=== PATIENT | female | born 1970 | race Caucasian/White ===

== ENCOUNTER 2022-03-09 14:30 | Inpatient (IN) | payer SELFPAY ==
[2022-03-09 15:16] LABS: Actual Bicarbonate (HCO3v) 22 mEq/L (22-28); Base Excess -2.5 mEq/L (-2.0 to +3.0); Calcium, Ionized (venous) 1.04 mmol/L (1.16-1.32); Chloride (VBG) 104 mmol/L (98-106); Hemoglobin (Hb) 16.2 g/dL (11.7-16.0); Sodium 142.8 mmol/L (133-146)
[2022-03-09 15:24] LABS: #Lymphocytes 0.8 thou/uL (1.20-3.40); #Monocytes 1.4 thou/uL (0.11-0.59); #Neutrophils 16.4 thou/uL (1.40-6.50); %Basophils 0.1 % (0.0-1.0); %Eosinophils 0.1 % (0.0-10.0); %Lymphocytes 4.1 % (21.0-51.0); %Monocytes 7.6 % (0.0-10.0); %Neutrophils 88.2 % (42.0-75.0); Hemoglobin 15.6 g/dL (12.0-16.0); Mean Corpuscular HGB CONC 32.7 g/dL (32.0-36.0); Mean Corpuscular Hemoglobin 34.3 pg (27.0-31.0); Platelet Count 418 thou/uL (130-400); RBC Distribution Width 11.7 % (11.5-14.5); Red Blood Cell (RBC) Count 4.55 mill/uL (4.20-5.40); White Blood Cell (WBC) Count 18.6 thou/uL (4.8-10.8)
[2022-03-09 15:46] LABS: ALT (SGPT) 167 U/L (8-55); AST (SGOT) 317 U/L (5-34); Acetaminophen Less than 10.0 mcg/mL (10.0-30.0); Albumin 4.7 g/dL (3.5-5.0); Alcohol Less than 10 mg/dL (Less than 10); Alkaline Phosphatase 127 U/L (40-110); Anion Gap 21 mmol/L (10-20); BUN (Urea Nitrogen) 41 mg/dL (7.0-18.7); Bilirubin, Total 0.5 mg/dL (0.2-1.2); Calc. Creatinine Clearance 0 mL/min (70-130); Calcium 9.5 mg/dL (7.8-10.44); Carbon Dioxide 22 mmol/L (22-29); Chloride 103 mmol/L (98-107); Estimated GFR 56; Globulin 3.5 g/dL (2.4-3.5); Glucose 83 mg/dL (70-105); Protein, Total 8.2 g/dL (6.0-8.3); Salicylate Less than 8.0 mg/dL (15.0-30.0); Sodium 142 mmol/L (136-145)
[2022-03-09 15:52] LABS: Magnesium 2.3 mg/dL (1.6-2.6)
[2022-03-09] MEDS ORDERED: levETIRAcetam 2,000 MG in Sodium Chloride 0.9% 100 ML SLOW IVP SCH (16:45)
[2022-03-09 16:48] LABS: CK (CPK) 26557 U/L (29-168)
[2022-03-09] MEDS ORDERED: Rocuronium Bromide 10 MG/ML (10ML VIAL) ONE (16:50)
[2022-03-09] MEDS ORDERED: Mannitol 12.5 GM/50 ML ONE ×3 (16:57→18:01)
[2022-03-09 17:28] LABS: Analyzer IN Cardio ER; Base Excess (BEa) -3.9 mEq/L (-2.0 to +3.0); Calcium, Ionized (arterial) 1.08 mmol/L (1.12-1.30); Carboxyhemoglobin (COHb) 0.2 gm% (0.0-3.0); Hemoglobin (Hb) 15.6 g/dL (12.0-16.0); O2 Tension (PaO2), arterial 454.5 mmHg (80.0-100.0); Potassium - ABG Lab 3.88 mmol/L (3.70-5.30); pH, Arterial 7.46 (7.35-7.45)
[2022-03-09 17:30] LABS: Puncture Site LBA
[2022-03-09] MEDS ORDERED: Propofol 1,000 MG/100 ML VIAL IV ONE (18:00)
[2022-03-09 18:25] LABS: Amphetamine Detected (NotDetected); Barbiturates Screen Not Detected (NotDetected); Benzodiazepine Screen Detected (NotDetected); Cocaine Metabolite Screen Not Detected (NotDetected); Methadone Not Detected (NotDetected); Methamphetamine Detected (NotDetected); Opiate Screen Detected (NotDetected); Oxycodone Screen Not Detected (NotDetected); Phencyclidine (PCP) Not Detected (NotDetected); THC/Cannabinoid Screen Detected (NotDetected); Tricyclic Screen Not Detected (NotDetected)
[2022-03-09 18:26] LABS: Bacteria/HPF 4+ HPF (None Seen); Bilirubin Negative (Negative); Blood, Urine 3+ (Negative); Clarity Turbid (Clear); Glucose, Urine (Dipstick) Normal (Negative); Ketone, Urine 20 mg/dL (Negative); Leukocyte 250 Leu/uL (Negative); Nitrite 1+ (Negative); Protein, Urine (Dipstick) 70 mg/dL (Neg-Trace); RBC/HPF 0-3 HPF (0-3); Specific Gravity, Urine 1.017 (1.002-1.036); Squamous Epithelial 0-3 HPF (0-3); Urobilinogen Normal mg/dL (Less than 2); WBC/HPF 21-50 HPF (0-3)
[2022-03-09 18:34] LABS: Pregnancy Test - Urine (BHCG) Negative (Negative); Pregu Control Background? CLEAR/WHITE (CLR/WHITE); Pregu Control Bar Appear? YES (CONTROL BAR); Specific Gravity 1.017 (1.002-1.036)
[2022-03-09] MEDS ORDERED: Ondansetron PF 4 MG/2 ML Vial IVP PRN (18:43)
[2022-03-09] MEDS ORDERED: Ondansetron ODT 4 MG TAB PO PRN (18:43)
[2022-03-09] MEDS ORDERED: Acetaminophen 650 MG Suppository PR PRN (18:43)
[2022-03-09] MEDS: Sodium Chloride 0.9% 1,000 ML IV SCH (19:25)
[2022-03-09] MEDS ORDERED: Midazolam HCl 2 mg/2 ml Vial SLOW IVP PRN (19:49)
[2022-03-09] MEDS ORDERED: Ventilator Sedation Protocol IVPB PRN (19:52)
[2022-03-09] MEDS ORDERED: Propofol BOLUS 1,000 MG/100 ML VIAL IV PRN (20:00)
[2022-03-09] MEDS ORDERED: Morphine 4 MG/ML VIAL SLOW IVP PRN (20:00)
[2022-03-09] MEDS ORDERED: Fentanyl CADD 100 ML IV SCH (20:00)
[2022-03-09] MEDS ORDERED: Fentanyl BOLUS 250 ML IVPB PRN (20:00)
[2022-03-09] MEDS ORDERED: Propofol 1,000 MG/100 ML VIAL IV PRN (20:00)
[2022-03-09] MEDS ORDERED: DOPamine 400 MG/D5W 250 ML 250 ML ONE (20:07)
[2022-03-09] MEDS ORDERED: DOPamine 400 MG/D5W 250 ML 250 ML IVPB SCH (21:15)
[2022-03-09] MEDS: Famotidine/PF 20 mg/2ml Vial SLOW IVP SCH (22:28)
[2022-03-09] MEDS ORDERED: NOREPINEPHRINE 8 MG/250 ML-D5W 250 ML IVPB SCH (22:30)
[2022-03-10 04:43] LABS: SARS-CoV-2 NAA Rapid Test Not Detected (NotDetected)
[2022-03-10 05:18] LABS: #Lymphocytes 1.3 thou/uL (1.20-3.40); #Monocytes 1.6 thou/uL (0.11-0.59); %Basophils 0.2 % (0.0-1.0); %Lymphocytes 10.4 % (21.0-51.0); %Monocytes 12.2 % (0.0-10.0); %Neutrophils 77.2 % (42.0-75.0); Hemoglobin 14.8 g/dL (12.0-16.0); Mean Corpuscular HGB CONC 33.1 g/dL (32.0-36.0); Mean Corpuscular Hemoglobin 34.9 pg (27.0-31.0); Mean Platelet Volume 7.2 fL (7.4-10.4); Platelet Count 423 thou/uL (130-400); RBC Distribution Width 11.9 % (11.5-14.5); Red Blood Cell (RBC) Count 4.24 mill/uL (4.20-5.40); White Blood Cell (WBC) Count 12.9 thou/uL (4.8-10.8)
[2022-03-10 05:36] LABS: ALT (SGPT) 155 U/L (8-55); AST (SGOT) 246 U/L (5-34); Albumin 3.7 g/dL (3.5-5.0); Alkaline Phosphatase 113 U/L (40-110); Anion Gap 16 mmol/L (10-20); BUN (Urea Nitrogen) 46 mg/dL (7.0-18.7); Bilirubin, Total 0.4 mg/dL (0.2-1.2); CK (CPK) 16087 U/L (29-168); Calc. Creatinine Clearance 50 mL/min (70-130); Calcium 8.6 mg/dL (7.8-10.44); Carbon Dioxide 23 mmol/L (22-29); Chloride 109 mmol/L (98-107); Estimated GFR 55; Globulin 3.1 g/dL (2.4-3.5); Glucose 119 mg/dL (70-105); Magnesium 2.2 mg/dL (1.6-2.6); Potassium 3.9 mmol/L (3.5-5.1); Protein, Total 6.8 g/dL (6.0-8.3); Sodium 144 mmol/L (136-145)
[2022-03-10] MEDS: Sodium Chloride 0.9% 1,000 ML IV SCH ×2 (06:15→16:58)
[2022-03-10 07:04] LABS: Actual Bicarbonate (HCO3a) 21.4 mEq/L (22-28); Base Excess (BEa) -2.7 mEq/L (-2.0 to +3.0); CO2 Tension 35.5 mmHg (35.0-45.0); Calcium, Ionized (arterial) 1.14 mmol/L (1.12-1.30); Carboxyhemoglobin (COHb) 0.1 gm% (0.0-3.0); O2 Tension (PaO2), arterial 187.7 mmHg (80.0-100.0); Potassium - ABG Lab 3.86 mmol/L (3.70-5.30)
[2022-03-10] MEDS: Famotidine/PF 20 mg/2ml Vial SLOW IVP SCH ×2 (08:56→20:33)
[2022-03-10 09:50] LABS: Puncture Site LBA
[2022-03-10 09:51] LABS: ALV-art Gradient 53.125 mmHg (0-20)
[2022-03-10] MEDS: hydrALAZINE 20 MG/ML VIAL SLOW IVP PRN ×2 (12:51→22:49)
[2022-03-10 15:21] VITALS: BMI 21.3
[2022-03-11] MEDS: Sodium Chloride 0.9% 1,000 ML IV SCH (03:38)
[2022-03-11 04:38] LABS: #Lymphocytes 0.8 thou/uL (1.20-3.40); #Monocytes 1.5 thou/uL (0.11-0.59); %Basophils 0.1 % (0.0-1.0); %Lymphocytes 5.1 % (21.0-51.0); %Monocytes 8.9 % (0.0-10.0); %Neutrophils 85.9 % (42.0-75.0); Hemoglobin 13.4 g/dL (12.0-16.0); Mean Corpuscular HGB CONC 33.2 g/dL (32.0-36.0); Mean Platelet Volume 7.9 fL (7.4-10.4); Platelet Count 357 thou/uL (130-400); RBC Distribution Width 11.8 % (11.5-14.5); Red Blood Cell (RBC) Count 3.84 mill/uL (4.20-5.40); White Blood Cell (WBC) Count 16.3 thou/uL (4.8-10.8)
[2022-03-11 04:51] LABS: ALT (SGPT) 164 U/L (8-55); AST (SGOT) 336 U/L (5-34); Albumin 3.4 g/dL (3.5-5.0); Alkaline Phosphatase 90 U/L (40-110); Anion Gap 14 mmol/L (10-20); BUN (Urea Nitrogen) 34 mg/dL (7.0-18.7); Bilirubin, Total 0.5 mg/dL (0.2-1.2); Calc. Creatinine Clearance 80 mL/min (70-130); Calcium 8.9 mg/dL (7.8-10.44); Carbon Dioxide 23 mmol/L (22-29); Chloride 113 mmol/L (98-107); Estimated GFR 94; Globulin 3.1 g/dL (2.4-3.5); Glucose 145 mg/dL (70-105); Magnesium 2.1 mg/dL (1.6-2.6); Potassium 3.8 mmol/L (3.5-5.1); Protein, Total 6.5 g/dL (6.0-8.3); Sodium 146 mmol/L (136-145)
[2022-03-11] MEDS: Famotidine/PF 20 mg/2ml Vial SLOW IVP SCH ×2 (09:50→20:01)
[2022-03-11] MEDS: Sodium Chloride 0.45% 1,000 ML IV SCH ×2 (09:51→20:00)
[2022-03-11] MEDS: Acetaminophen 325 MG TAB PO PRN ×2 (13:14→17:40)
[2022-03-12] MEDS: Acetaminophen 325 MG TAB PO PRN (00:08)
[2022-03-12] MEDS: hydrALAZINE 20 MG/ML VIAL SLOW IVP PRN (02:26)
[2022-03-12] MEDS ORDERED: NOREPINEPHRINE 8 MG/250 ML-D5W 250 ML IVPB SCH (04:15)
[2022-03-12 05:16] LABS: Band 50 % (5-11); Lymphocytes 6 % (21-51); MDiff Complete? YES; Macrocytosis SLIGHT = 6-15 cells (100X) (0-5/hpf); Mean Corpuscular HGB CONC 32.4 g/dL (32.0-36.0); Mean Corpuscular Hemoglobin 34.8 pg (27.0-31.0); Mean Platelet Volume 7.9 fL (7.4-10.4); Monocytes 4 % (0-10); Neutrophil 39 % (42-75); Platelet Count 262 thou/uL (130-400); Platelet Morphology Comment Appears Adequate; RBC Distribution Width 11.8 % (11.5-14.5); Reactive Lymphocytes 1 % (0-10); Red Blood Cell (RBC) Count 3.18 mill/uL (4.20-5.40); Reflex for Review?? YES
[2022-03-12 05:18] LABS: ALT (SGPT) 122 U/L (8-55); AST (SGOT) 201 U/L (5-34); Albumin 3.1 g/dL (3.5-5.0); Alkaline Phosphatase 69 U/L (40-110); Anion Gap 12 mmol/L (10-20); BUN (Urea Nitrogen) 26 mg/dL (7.0-18.7); Bilirubin, Total 0.4 mg/dL (0.2-1.2); Calc. Creatinine Clearance 77 mL/min (70-130); Calcium 8.7 mg/dL (7.8-10.44); Carbon Dioxide 23 mmol/L (22-29); Chloride 113 mmol/L (98-107); Estimated GFR 88; Globulin 2.8 g/dL (2.4-3.5); Glucose 131 mg/dL (70-105); Phosphorus 2.1 mg/dL (2.3-4.7); Potassium 3.6 mmol/L (3.5-5.1); Protein, Total 5.9 g/dL (6.0-8.3); Sodium 144 mmol/L (136-145)
[2022-03-12 05:31] LABS: CK (CPK) 7035 U/L (29-168)
[2022-03-12 08:10] VITALS: TEMP 98
[2022-03-12] MEDS: Sodium Chloride 0.45% 1,000 ML IV SCH ×3 (08:36→14:43)
[2022-03-12] MEDS: Famotidine/PF 20 mg/2ml Vial SLOW IVP SCH (08:55)
[2022-03-12] MEDS ORDERED: Prevnar 13-Val Conj/PF 0.5 ML SYRINGE IM ONE (09:00)
[2022-03-12] MEDS ORDERED: hydrALAZINE 20 MG/ML VIAL SLOW IVP PRN ×2 (13:59→15:21)
[2022-03-12 14:37] VITALS: BP 188/114
[2022-03-12] MEDS ORDERED: hydrALAZINE 20 MG/ML VIAL SLOW IVP SCH (15:00)
== END 2022-03-12 11:20 | disposition expired | DRG 917 ==
LOC: ERS 14:30 → EDBD 17:22 → CCU 17:22
PROVIDERS: ADMIT Hospitalist; ATTEND Internal Medicine
PROC: 3E033XZ Introduction of Vasopressor into Peripheral Vein, Percutaneous Approach (ICD-10-PCS; 2022-03-09)
PROC: 5A1945Z Respiratory Ventilation, 24-96 Consecutive Hours (ICD-10-PCS; 2022-03-09)
PROC: 0BH18EZ Insertion of Endotracheal Airway into Trachea, Via Natural or Artificial Opening Endoscopic (ICD-10-PCS; 2022-03-09)
PROC: 06HY33Z Insertion of Infusion Device into Lower Vein, Percutaneous Approach (ICD-10-PCS; principal; 2022-03-12)
DX: T40.601A Poisoning by unspecified narcotics, accidental (unintentional), initial encounter (principal); G93.41 Metabolic encephalopathy; J96.00 Acute respiratory failure, unspecified whether with hypoxia or hypercapnia; I63.9 Cerebral infarction, unspecified; G93.6 Cerebral edema; G93.1 Anoxic brain damage, not elsewhere classified; M62.82 Rhabdomyolysis; N17.9 Acute kidney failure, unspecified; E87.0 Hyperosmolality and hypernatremia; G91.9 Hydrocephalus, unspecified; T43.621A Poisoning by amphetamines, accidental (unintentional), initial encounter; T40.711A Poisoning by cannabis, accidental (unintentional), initial encounter; D72.829 Elevated white blood cell count, unspecified; T40.1X1A Poisoning by heroin, accidental (unintentional), initial encounter; R79.89 Other specified abnormal findings of blood chemistry; D64.9 Anemia, unspecified; M47.812 Spondylosis without myelopathy or radiculopathy, cervical region; Y92.009 Unspecified place in unspecified non-institutional (private) residence as the place of occurrence of the external cause; Z20.822 Contact with and (suspected) exposure to COVID-19
CPT/HCPCS: 36415; 36600; 70450; 70486; 70551; 71045; 72125; 78610; 80053; 80306; 80307; 81003; 81015; 81025; 82550; 82805; 83735; 84100; 84146; 84443; 85025; 85060; 93005; 94002; 94003; 95816; 95819; 95957; A9521; J0360; J1265; J1953; J2150; J2597; J2704; J3490; J7050; S0028; U0002; U0003; U0005

== ENCOUNTER 2022-03-12 11:19 | Day surgery (SDC) | payer OTHER ==
[2022-03-12] MEDS ORDERED: Refresh Lacri-lube Opth Oint 7 GM TUBE FS SCH (17:30)
[2022-03-12] MEDS ORDERED: Phenylephrine 40 MG in Sodium Chloride 0.9% 250 ML 250 ML IVPB SCH (17:45)
[2022-03-12] MEDS ORDERED: Hydrocortisone Sod Succ/PF 500 mg/4 ml Vial SLOW IVP SCH (17:45)
[2022-03-12 17:57] VITALS: BMI 21.6
[2022-03-12] MEDS: Piperacillin/Tazobactam 3.375 GM in Sodium Chloride 0.9% 100 ML IVPB SCH ×2 (18:13→23:17)
[2022-03-12] MEDS: Sodium Chloride 0.45% 1,000 ML IV SCH (18:13)
[2022-03-12] MEDS ORDERED: Phenylephrine 40 MG/NS 250 ML 40 MG in Premix Bag 1 BAG IVPB SCH (18:30)
[2022-03-12] MEDS: Albuterol Sulfate 2.5 mg/0.5 ml Neb NEB SCH ×2 (18:39→22:15)
[2022-03-12 18:42] LABS: INR-International Normal Ratio 1.3; Prothrombin Time 16.6 sec (12.0-14.7)
[2022-03-12 18:43] LABS: PTT 40.2 sec (22.9-36.1)
[2022-03-12 18:46] LABS: Actual Bicarbonate (HCO3a) 24.9 mEq/L (22-28); Base Excess (BEa) 0.2 mEq/L (-2.0 to +3.0); Calcium, Ionized (arterial) 1.21 mmol/L (1.12-1.30); Carboxyhemoglobin (COHb) 0.2 gm% (0.0-3.0); Hemoglobin (Hb) 12.3 g/dL (12.0-16.0); O2 Tension (PaO2), arterial 73.1 mmHg (80.0-100.0); Potassium - ABG Lab 3.51 mmol/L (3.70-5.30)
[2022-03-12 18:46] LABS: ALT (SGPT) 109 U/L (8-55); AST (SGOT) 119 U/L (5-34); Alkaline Phosphatase 74 U/L (40-110); Anion Gap 8 mmol/L (10-20); BUN (Urea Nitrogen) 16 mg/dL (7.0-18.7); Bilirubin, Total 0.4 mg/dL (0.2-1.2); Calc. Creatinine Clearance 108 mL/min (70-130); Calcium 8.8 mg/dL (7.8-10.44); Carbon Dioxide 27 mmol/L (22-29); Chloride 117 mmol/L (98-107); Estimated GFR 110; Globulin 3.2 g/dL (2.4-3.5); Glucose 120 mg/dL (70-105); Magnesium 1.9 mg/dL (1.6-2.6); Potassium 3.5 mmol/L (3.5-5.1); Protein, Total 6.2 g/dL (6.0-8.3); Sodium 148 mmol/L (136-145)
[2022-03-12 18:47] LABS: Puncture Site ALINE
[2022-03-12] MEDS: Phytonadione 10 MG/ML AMP SLOW IVP SCH ×2 (18:48→22:27)
[2022-03-12 19:07] LABS: Hemoglobin A1c 5.1 % (4.0-6.0)
[2022-03-12 19:47] LABS: Bacteria/HPF 4+ HPF (None Seen); Bilirubin Negative (Negative); Blood, Urine 2+ (Negative); Clarity Turbid (Clear); Glucose, Urine (Dipstick) Normal (Negative); Ketone, Urine Negative (Negative); Leukocyte 250 Leu/uL (Negative); Nitrite 1+ (Negative); Protein, Urine (Dipstick) Negative (Neg-Trace); RBC/HPF 0-3 HPF (0-3); Specific Gravity, Urine 1.009 (1.002-1.036); Squamous Epithelial 0-3 HPF (0-3); Urobilinogen Normal mg/dL (Less than 2); pH, Urine 6.5 (5.0-9.0)
[2022-03-12 22:12] VITALS: TEMP 97.7
[2022-03-12] MEDS ORDERED: Potassium Chloride 20 MEQ in Premix Bag 1 BAG IVPB SCH (22:15)
[2022-03-12] MEDS ORDERED: Vasopressin 20 UNIT, Admixture Fee 1 EACH in Sodium Chloride 0.9% 50 ML IV SCH (22:45)
[2022-03-13 00:43] LABS: Actual Bicarbonate (HCO3a) 21.8 mEq/L (22-28); Base Excess (BEa) -2.5 mEq/L (-2.0 to +3.0); CO2 Tension 35.9 mmHg (35.0-45.0); Calcium, Ionized (arterial) 1.15 mmol/L (1.12-1.30); Carboxyhemoglobin (COHb) 0.3 gm% (0.0-3.0); Hemoglobin (Hb) 10.6 g/dL (12.0-16.0); O2 Tension (PaO2), arterial 125.7 mmHg (80.0-100.0); Potassium - ABG Lab 3.81 mmol/L (3.70-5.30)
[2022-03-13 00:44] LABS: INR-International Normal Ratio 1.4; PTT 39.6 sec (22.9-36.1); Prothrombin Time 17.5 sec (12.0-14.7)
[2022-03-13 00:44] LABS: ALV-art Gradient 114.625 mmHg (0-20); Puncture Site ALINE
[2022-03-13 00:55] LABS: Lactic Acid 1.5 mmol/L (0.5-2.2)
[2022-03-13 00:59] LABS: ALT (SGPT) 86 U/L (8-55); AST (SGOT) 82 U/L (5-34); Albumin 4.3 g/dL (3.5-5.0); Alkaline Phosphatase 65 U/L (40-110); Anion Gap 16 mmol/L (10-20); BUN (Urea Nitrogen) 12 mg/dL (7.0-18.7); Bilirubin, Direct 0.4 mg/dL (0.1-0.3); Bilirubin, Total 0.6 mg/dL (0.2-1.2); Calc. Creatinine Clearance 88 mL/min (70-130); Calcium 9.2 mg/dL (7.8-10.44); Carbon Dioxide 21 mmol/L (22-29); Chloride 121 mmol/L (98-107); Estimated GFR 104; Globulin 2.8 g/dL (2.4-3.5); Glucose 151 mg/dL (70-105); Lipase 9 U/L (8-78); Magnesium 1.9 mg/dL (1.6-2.6); Potassium 3.9 mmol/L (3.5-5.1); Protein, Total 7.1 g/dL (6.0-8.3); Sodium 154 mmol/L (136-145)
[2022-03-13 01:02] LABS: Phosphorus 1.9 mg/dL (2.3-4.7)
[2022-03-13 01:20] LABS: Band 40 % (5-11); Hemoglobin 10.4 g/dL (12.0-16.0); MDiff Complete? YES; Mean Corpuscular HGB CONC 33.2 g/dL (32.0-36.0); Mean Corpuscular Hemoglobin 35.9 pg (27.0-31.0); Mean Platelet Volume 7.9 fL (7.4-10.4); Monocytes 6 % (0-10); Neutrophil 54 % (42-75); Platelet Count 208 thou/uL (130-400); RBC Distribution Width 11.8 % (11.5-14.5); Red Blood Cell (RBC) Count 2.89 mill/uL (4.20-5.40); White Blood Cell (WBC) Count 18.6 thou/uL (4.8-10.8)
[2022-03-13] MEDS ORDERED: Magnesium Sulfate In Water 4 GM in Premix Bag 1 BAG IVPB SCH (01:30)
[2022-03-13] MEDS: Hydrocortisone Sod Succ/PF 100 mg/2 ml Vial IVP SCH ×3 (02:07→17:13)
[2022-03-13] MEDS: Albuterol Sulfate 2.5 mg/0.5 ml Neb NEB SCH ×4 (02:15→14:19)
[2022-03-13 04:40] LABS: Actual Bicarbonate (HCO3a) 24.6 mEq/L (22-28); Base Excess (BEa) 0.2 mEq/L (-2.0 to +3.0); CO2 Tension 38.9 mmHg (35.0-45.0); Calcium, Ionized (arterial) 1.22 mmol/L (1.12-1.30); Hemoglobin (Hb) 11.6 g/dL (12.0-16.0); O2 Tension (PaO2), arterial 472.8 mmHg (80.0-100.0); Potassium - ABG Lab 3.89 mmol/L (3.70-5.30); Puncture Site ALINE; pH, Arterial 7.42 (7.35-7.45)
[2022-03-13 04:41] LABS: ALV-art Gradient 191.575 mmHg (0-20)
[2022-03-13] MEDS: Sodium Chloride 0.45% 1,000 ML IV SCH (05:17)
[2022-03-13] MEDS: Piperacillin/Tazobactam 3.375 GM in Sodium Chloride 0.9% 100 ML IVPB SCH ×3 (05:18→17:13)
[2022-03-13 06:43] LABS: INR-International Normal Ratio 1.3; PTT 41.3 sec (22.9-36.1); Prothrombin Time 16.7 sec (12.0-14.7)
[2022-03-13 06:48] LABS: Lactic Acid 1.8 mmol/L (0.5-2.2)
[2022-03-13 06:55] LABS: ALT (SGPT) 82 U/L (8-55); AST (SGOT) 79 U/L (5-34); Albumin 4.4 g/dL (3.5-5.0); Alkaline Phosphatase 77 U/L (40-110); Anion Gap 15 mmol/L (10-20); BUN (Urea Nitrogen) 12 mg/dL (7.0-18.7); Bilirubin, Direct 0.5 mg/dL (0.1-0.3); Bilirubin, Total 0.8 mg/dL (0.2-1.2); Calc. Creatinine Clearance 82 mL/min (70-130); Calcium 9.1 mg/dL (7.8-10.44); Carbon Dioxide 22 mmol/L (22-29); Estimated GFR 92; Globulin 2.1 g/dL (2.4-3.5); Glucose 197 mg/dL (70-105); Lipase 8 U/L (8-78); Magnesium 3.2 mg/dL (1.6-2.6); Potassium 3.6 mmol/L (3.5-5.1); Protein, Total 6.5 g/dL (6.0-8.3); Sodium 159 mmol/L (136-145)
[2022-03-13 06:57] LABS: Chloride 126 mmol/L (98-107)
[2022-03-13 07:16] LABS: Base Excess (BEa) -1.5 mEq/L (-2.0 to +3.0); CO2 Tension 38.2 mmHg (35.0-45.0); Calcium, Ionized (arterial) 1.19 mmol/L (1.12-1.30); Carboxyhemoglobin (COHb) 0.3 gm% (0.0-3.0); Hemoglobin (Hb) 11.6 g/dL (12.0-16.0); O2 Tension (PaO2), arterial 119.7 mmHg (80.0-100.0); Potassium - ABG Lab 3.37 mmol/L (3.70-5.30)
[2022-03-13 07:16] LABS: CKMB 2.2 ng/mL (0-6.6)
[2022-03-13 07:17] LABS: Puncture Site Arterial Line
[2022-03-13] MEDS ORDERED: HUMULIN R 100 UNITS in Sodium Chloride 0.9% 100 ML IVPB SCH (07:45)
[2022-03-13] MEDS ORDERED: Iopamidol 370 76% 100 ML VIAL ONE (09:46)
[2022-03-13 09:49] LABS: Band 28 % (5-11); Hemoglobin 10.6 g/dL (12.0-16.0); Lymphocytes 1 % (21-51); MDiff Complete? YES; Mean Corpuscular HGB CONC 32.1 g/dL (32.0-36.0); Mean Corpuscular Hemoglobin 34.9 pg (27.0-31.0); Mean Platelet Volume 7.9 fL (7.4-10.4); Monocytes 2 % (0-10); Neutrophil 69 % (42-75); Platelet Count 217 thou/uL (130-400); Platelet Morphology Comment Appears Adequate; RBC Distribution Width 11.9 % (11.5-14.5); RBC Morphology Normal; Red Blood Cell (RBC) Count 3.03 mill/uL (4.20-5.40); White Blood Cell (WBC) Count 24.1 thou/uL (4.8-10.8)
[2022-03-13 10:43] LABS: Actual Bicarbonate (HCO3a) 22.2 mEq/L (22-28); Base Excess (BEa) -1.6 mEq/L (-2.0 to +3.0); CO2 Tension 34.3 mmHg (35.0-45.0); Calcium, Ionized (arterial) 1.18 mmol/L (1.12-1.30); Carboxyhemoglobin (COHb) 0.3 gm% (0.0-3.0); Hemoglobin (Hb) 11.3 g/dL (12.0-16.0); O2 Tension (PaO2), arterial 468.4 mmHg (80.0-100.0); Potassium - ABG Lab 3.19 mmol/L (3.70-5.30); pH, Arterial 7.43 (7.35-7.45)
[2022-03-13 10:50] LABS: ALV-art Gradient 201.725 mmHg (0-20); Puncture Site Arterial Line
[2022-03-13 11:53] LABS: Hemoglobin 10.4 g/dL (12.0-16.0); Mean Corpuscular HGB CONC 32.2 g/dL (32.0-36.0); Mean Platelet Volume 8.3 fL (7.4-10.4); Platelet Count 212 thou/uL (130-400); Red Blood Cell (RBC) Count 2.99 mill/uL (4.20-5.40)
[2022-03-13 12:00] LABS: INR-International Normal Ratio 1.4; PTT 39.8 sec (22.9-36.1); Prothrombin Time 17.8 sec (12.0-14.7)
[2022-03-13 12:11] LABS: Calcium 8.8 mg/dL (7.8-10.44); Potassium 3.2 mmol/L (3.5-5.1); Sodium 160 mmol/L (136-145)
[2022-03-13 12:12] LABS: Glucose 160 mg/dL (70-105)
[2022-03-13 12:13] LABS: Globulin 2.1 g/dL (2.4-3.5); Protein, Total 6.1 g/dL (6.0-8.3)
[2022-03-13 12:14] LABS: Anion Gap 17 mmol/L (10-20); Bilirubin, Total 0.7 mg/dL (0.2-1.2); Carbon Dioxide 19 mmol/L (22-29)
[2022-03-13 12:15] LABS: Alkaline Phosphatase 79 U/L (40-110); Lactic Acid 1.6 mmol/L (0.5-2.2)
[2022-03-13 12:16] LABS: BUN (Urea Nitrogen) 13 mg/dL (7.0-18.7); Calc. Creatinine Clearance 87 mL/min (70-130); Estimated GFR 100
[2022-03-13 12:17] LABS: AST (SGOT) 70 U/L (5-34); Band 5 % (5-11); Bilirubin, Direct 0.3 mg/dL (0.1-0.3); Hypochromia SLIGHT = 6-15 cells (100X) (0-5/hpf); Lymphocytes 4 % (21-51); MDiff Complete? YES; Macrocytosis SLIGHT = 6-15 cells (100X) (0-5/hpf); Metamyelocyte 1 % (0-0); Monocytes 5 % (0-10); Neutrophil 85 % (42-75); Platelet Morphology Comment Appears Adequate
[2022-03-13 12:18] LABS: ALT (SGPT) 76 U/L (8-55); Magnesium 2.8 mg/dL (1.6-2.6)
[2022-03-13 12:19] LABS: Lipase 6 U/L (8-78)
[2022-03-13 12:26] LABS: Chloride 127 mmol/L (98-107); Phosphorus 2.5 mg/dL (2.3-4.7)
[2022-03-13 12:32] LABS: CKMB 2.1 ng/mL (0-6.6)
[2022-03-13 14:57] VITALS: BP 110/59
[2022-03-13 15:04] LABS: Bilirubin Negative (Negative); Blood, Urine 3+ (Negative); Clarity Turbid (Clear); Glucose, Urine (Dipstick) 70 mg/dL (Negative); Ketone, Urine 10 mg/dL (Negative); Leukocyte Negative Leu/uL (Negative); Nitrite Negative (Negative); Protein, Urine (Dipstick) 200 mg/dL (Neg-Trace); Specific Gravity, Urine 1.029 (1.002-1.036); Squamous Epithelial 0-3 HPF (0-3); Urobilinogen Normal mg/dL (Less than 2)
[2022-03-13] MEDS ORDERED: Lidocaine 1% (PF) 30 ML VIAL ONE (15:05)
[2022-03-13 15:21] LABS: Bacteria/HPF 1+ HPF (None Seen)
[2022-03-13] MEDS ORDERED: Nitroglycerin 100MG/250ML BOT 250 ML ONE (15:55)
[2022-03-13] MEDS ORDERED: Heparin 10,000 UNITS/ 10 ML VIAL ONE (15:55)
[2022-03-13] MEDS ORDERED: Verapamil 5 MG/2 ML VIAL ONE (15:55)
== END 2022-03-13 18:00 | disposition expired ==
LOC: SDC 11:19 → CCU 11:19 → SUATTDRO 11:19 → SDC 03-13 18:00
PROVIDERS: ATTEND Hospitalist
PROC: B2111ZZ Fluoroscopy of Multiple Coronary Arteries using Low Osmolar Contrast (ICD-10-PCS; principal; 2022-03-13)
PROC: 4A023N8 Measurement of Cardiac Sampling and Pressure, Bilateral, Percutaneous Approach (ICD-10-PCS; principal; 2022-03-13)
DX: Z52.89 Donor of other specified organs or tissues (principal); J18.9 Pneumonia, unspecified organism; I25.10 Atherosclerotic heart disease of native coronary artery without angina pectoris
CPT/HCPCS: 31624; 36416; 71045; 71250; 74177; 80053; 81001; 82150; 82248; 82553; 82805; 83036; 83605; 83690; 83735; 84100; 84484; 85025; 85384; 85610; 85730; 87205; 93005; 93010; 93306; 93460; 94003; 94640; C1769; C1887; C1894; J1644; J1720; J1815; J2001; J2543; J3430; J3475; J3480; J3490; J7611; P9045; Q9967